=== PATIENT | male | born 1975 | race Caucasian/White ===

== ENCOUNTER 2025-09-25 20:46 | Emergency (ER) | payer BC, SELFPAY ==
[2025-09-25 20:48] VITALS: BP 165/98
[2025-09-25] MEDS: LET TOPICAL ANESTHETIC GEL 3 ML TOPICAL (21:11)
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
[2025-09-25] MEDS: ADACEL 0.5 ML IM (21:48)
[2025-09-25 21:53] VITALS: BMI 26.6
[2025-09-25] MEDS: KEFLEX 500 MG PO (22:46)
[2025-09-25 22:55] VITALS: BP 125/78
== END 2025-09-25 22:58 | disposition home or self-care (01) ==
LOC: EMR 20:46
PROVIDERS: EMERGENCY PHYSICIAN Emergency Medicine; FAMILY PHYSICIAN Family Medicine
DX: S02.2XXA Fracture of nasal bones, initial encounter for closed fracture (principal); S01.21XA Laceration without foreign body of nose, initial encounter; W39.XXXA Discharge of firework, initial encounter; Z23 Encounter for immunization
CPT/HCPCS: 12011; 99284; 90471; 70486; 90715